=== PATIENT | female | born 2000 | race Caucasian/White ===

== ENCOUNTER 2025-09-13 18:53 | Emergency (ER) | payer OTHER, SELFPAY ==
[2025-09-13 19:01] VITALS: BP 155/90; PULSE 100; RESP 16; O2SAT 100
--- NOTE | 2025-09-13 20:27 | ECG_ITS ---
Test Date: 2025-09-13 20:33:14 Measurements Intervals [place] Rate: 75 P: 21 MT: 104 QRS: 36 QRSD: 82 T: 27 QT: 381 QTc: 428 Interpretive Statements SINUS RHYTHM WITH SHORT MT INTERVAL BASELINE ARTIFACT- I, II, III, AVR, AVL, AVF, V1-V6 BORDERLINE ECG No previous ECG available for comparison Electronically Signed On 09-13-2025 20:42:23 CDT by Epi Maki D.O.
--- NOTE | 2025-09-13 20:27 | PC.NURSE ---
Patients mother comes to desk and states my daughter says she is having cp. Patient pulled to have VS taken and EKG.
--- NOTE | 2025-09-14 00:09 | ED.SKABFB ---
HPI - Skin/Abscess/Foreign Bdy General Chief complaint: Skin/Abscess/Foreign Body Stated complaint: cant swallow Time Seen by Provider: 09/13/25 23:57 Source: patient Mode of arrival: ambulatory Limitations: no limitations History of Present Illness HPI narrative: This is a 25 year old female that presents to the ER for difficulty swallowing. Reports around 10:30 this morning she took 3, 200mg ibuprofen. She has not been able to swallow since. Feels like it gets stuck and then comes back up. Related Data Allergies Allergy/AdvReac Type Severity Reaction Status Date / Time No Known Allergies Allergy Verified 09/14/25 00:00 Review of Systems Review of Systems: All systems reviewed & are unremarkable except as noted in HPI and below Exam Narrative: GENERAL: Well-appearing, well-nourished, and in no acute distress. HEAD: Normocephalic, atraumatic. EYES: EOMI. ENT: Nares clear, no rhinorrhea or epistaxis. Mucous membranes moist. Oropharynx without tonsillar hypertrophy exudate or other lesions. CHEST: Clear to auscultation. No respiratory distress. No wheezes rales or rhonchi HEART: Regular rate and rhythm. No murmur heard. Normal peripheral pulses. ABDOMEN: Soft, nontender, nondistended, normal active bowel sounds. EXTREMITIES: Normal range of motion. No edema. SKIN: Warm, dry, no rash. NEURO: No focal deficits. Alert and oriented x3. PSYCH: Normal mood and affect Course Course Emergency Course: patient tolerating oral intake Vital Signs Vital signs: Vital Signs Pulse Rate 100 09/13/25 19:01 Respiratory Rate 16 09/13/25 19:01 Blood Pressure 155/90 H 09/13/25 19:01 Pulse Oximetry 100 09/13/25 19:01 Oxygen Delivery Room Air 09/13/25 19:01 Pulse Rate 100 09/13/25 19:01 Respiratory Rate 16 09/13/25 19:01 Blood Pressure 155/90 H 09/13/25 19:01 Pulse Oximetry 100 09/13/25 19:01 Oxygen Delivery Room Air 09/13/25 19:01 MDM - Skin/Abscess/Foreign Bdy MDM Narrative Medical decision making narrative: Patient presents to the emergency department for pill esophagitis. Relief after Protonix, Zofran, GI cocktail. Will be continued on Protonix. Differential Diagnosis Differential diagnosis: Likely other (esophagitis) Lab Data Attestation: I reviewed the patient's lab results. 09/14/25 00:12 09/14/25 00:12 Labs: Lab Results 09/14/25 Range/Units 00:12 WBC 9.5 (4.5-10.0) K/mm3 RBC 4.92 (4.2-5.4) M/mm3 Hgb 14.1 (12.0-15.0) g/dL Hct 42.9 (37.0-47.0) % MCV 87.2 (80-100) fl MCH 28.7 (26-34) pg MCHC 32.9 (32-36) g/dl RDW 12.1 (11.5-14.5) % Plt Count 340 (150-375) k/mm3 MPV 10.4 (7.4-10.4) fl Immature Gran % (Auto) 0.2 (0-0.5) % Neut % (Auto) 55.9 (45.5-73.1) % Lymph % (Auto) 36.5 (18.3-44.2) % [place] % (Auto) 5.0 (2.6-8.5) % Eos % (Auto) 1.9 (0-4.4) % Baso % (Auto) 0.5 (0.2-1.2) % Lymph # (Auto) 3.46 H (0.9-3.2) K/mm3 [place] # (Auto) 0.5 (0.1-0.6) K/mm3 Eos # (Auto) 0.2 (0-0.3) K/mm3 Baso # (Auto) 0.1 (0.0-0.1) K/mm3 Abs Immat Gran (auto) 0.02 (0.00-0.031) K/mm3 Absolute Neuts (auto) 5.3 (1.3-6.7) K/mm3 Absolute Nucleated RBC 0.000 (0.0-0.012) K/mm3 Nucleated RBC % 0.0 (0.0-0.2) % Sodium 140 (137-145) mmol/L Potassium 4.0 (3.4-5.0) mmol/L Chloride 105 (98-107) mmol/L Carbon Dioxide 22 (22-30) mmol/L Anion Gap 13 H (4-12) mmol/L BUN 14 (7-17) mg/dL Creatinine 0.97 (0.7-1.0) mg/dL Estim Creat Clear Calc 78 ml/min Estimated GFR > 60 (59 - ) Glucose 85 (65-110) mg/dL Calcium 9.5 (8.4-10.2) mg/dL Total Bilirubin 0.6 (0.2-1.3) mg/dL AST 26 (14-36) U/L ALT 17 (6-35) U/L Alkaline Phosphatase 108 (38-126) U/L Total Protein 8.9 H (6.3-8.2) g/dL Albumin 4.6 (3.5-5.1) g/dL Critical Care Time Critical Care Time Critical Care Time: No Discharge Plan Discharge Clinical Impression: Pill esophagitis Patient Disposition: Home Condition: Stable Instructions: Esophagitis (ED) Additional Instructions: Return to the ER if you experience fever, abdominal pain with nausea and vomiting, you are unable to keep down liquids or solids, or any other symptoms that are concerning to you Remain well hydrated. Avoid spicy/acidic foods. Avoid alcohol. Avoid anti-inflammatories (aleve, ibuprofen, naproxen, etc), avoid eating just before bedtime Follow up with primary care doctor Patient Language: Armenian Prescriptions: New pantoprazole 40 mg tablet,delayed release (DR/EC) 40 mg PO HS 28 Days Qty: 28 0RF Follow-up/Referrals: PHYSICIAN,APPLICATIONS PROCESSOR [Non-Staff, Internal Medicine] Kobe Hoyos MD [Physician, Family Practice]
[2025-09-14] MEDS: SODIUM CHLORIDE 0.9% IV 1,000 ML 999 ML IV CONT (00:13)
[2025-09-14] MEDS: ONDANSETRON INJ 4 MG/2 ML VIAL IV PUSH (00:13)
[2025-09-14] MEDS: PANTOPRAZOLE SODIUM IV 40 MG VIAL IV PUSH (00:14)
--- OUTSIDE RECORDS SUMMARY | 2025-09-14 00:16 | XMS_ITS | Encounter Summary ---
Author Organization [facility] Address [address] [place] [address] Care Team Providers Care Allergy Nurse Name Role Phone Ayse Irvin [facility] Primary Care Provider [phone] Encounter Details Date Type Department Care Team (Late st Contact Info) Description 04/16/2025 Abstract [facility] [address] [place] [address] Ayse Irvin [facility] [address] [place], [place] [id number] Social History Tobacco Use Types Packs/Day Years Used Date Smoking Tobacco: Never Passive Smoke Exposure: Never Smokeless Tobacco: Never Alcohol Use Standard Drinks/Week Comments No 0 (1 standard drink = 0.6 oz pur e alcohol) AUDIT-C Answer Date Recorded Frequency of Alcohol Consumption Never 01/23/2019 Average Number of Drinks Not on file 019 Frequency of Binge Drinking Not on file 12/28 PHQ-2 Answer Date Recorded Patient Health Questionnaire-2 Score 0 04/01/2025 Comments No Sex and Gender Information Value Date Recorded Sex Assigned at Female 01/15/2025 7:02 AM S[employer]IOR [employer] Legal Sex Female 8:55 PM CDT Gender Identity Female 04/01/2025 3:04 PM CDT Sexual Orientation Not on file documented as of this encounter Plan of Treatment Not on file documented as of this encounter Visit Diagnoses Not on filedocumented in this encounter Additional Health Concerns Assessment Noted Time PHQ-9 Depression Total Score: 0 09/05/20 21 3:07 PM CDT documented as of this encounter Care Teams Allergy Nurse Relationship Specialty Start Date End Date Ayse Irvin FNP [address] [place] [address] [place] [address] PCP - General Nurse Practitioner Family 01/20/19 documented as of this encounter
[2025-09-14 00:35] LABS: Alanine Aminotransferase 17 U/L (6-35); Albumin Level 4.6 g/dL (3.5-5.1); Alkaline Phosphatase 108 U/L (38-126); Anion Gap 13 mmol/L (4-12); Aspartate Amino Transferase 26 U/L (14-36); Bilirubin,Total 0.6 mg/dL (0.2-1.3); Blood Urea Nitrogen 14 mg/dL (7-17); Calcium 9.5 mg/dL (8.4-10.2); Carbon Dioxide 22 mmol/L (22-30); Chloride 105 mmol/L (98-107); Estimated CRCL calculation 78 ml/min; Estimated Glomerular Filt Rate > 60; Glucose 85 mg/dL (65-110); Potassium 4.0 mmol/L (3.4-5.0); Sodium 140 mmol/L (137-145); Total Protein 8.9 g/dL (6.3-8.2)
[2025-09-14 00:47] LABS: Hematocrit 42.9 % (37.0-47.0); Hemoglobin 14.1 g/dL (12.0-15.0); Immature Granulocyte Percent A 0.2 % (0-0.5); Lymphocytes Absolute Auto 3.46 K/mm3 (0.9-3.2); Mean Corpuscular HGB Conc 32.9 g/dl (32-36); Mean Corpuscular Hemoglobin 28.7 pg (26-34); Mean Corpuscular Volume 87.2 fl (80-100); Nucleated Red Blood Cells Absolute Auto 0.000 K/mm3 (0.0-0.012); Nucleated Red Blood Cells Perc 0.0 % (0.0-0.2); Platelet Count Result 340 k/mm3 (150-375); Red Blood Count 4.92 M/mm3 (4.2-5.4); White Blood Count 9.5 K/mm3 (4.5-10.0)
[2025-09-14] MEDS: BELLADONNA ALK/PHENOB ELIX 10 ML, MAG HYDROX/ALUMINUM HYD/SIMETH 30 ML, LIDOCAINE 2% VI... PO (01:26)
== END 2025-09-14 02:35 | disposition home or self-care (01) ==
PROVIDERS: Emergency Provider Physician Assistant; PCP Nurse Practitioner
DX: K20.80 Other esophagitis without bleeding (principal); R94.31 Abnormal electrocardiogram [ECG] [EKG]
CPT/HCPCS: 36415; 80053; 85025; 93005; 96361; 96374; 96375; 99284; A9270; J2405; J2470; J7030